=== PATIENT | male | born 1955 | race Caucasian/White ===

== ENCOUNTER 2016-11-28 00:02 | Emergency (ER) | payer SELFPAY ==
--- NOTE | 2016-11-29 04:09 | ER ---
ADMIT: 11/28/2016 RM/LOC: ER [facility] MR#: [id number] [place], [place] [id number] AFSANEH HERNANDEZ [address] [place] [address] [facility] Emergency Room Report SEX: M AGE: 61 : 1955 DATE: 11/28/2016 TIME: 0002 Please refer to my T-sheet for complete H and P. HISTORY OF PRESENT ILLNESS: Briefly, the patient is a 61-year-old who comes in with right leg swelling and tender. It has been there for 2-3 days. It hurts when he walks. He said he had some chills, but no fever recently. PHYSICAL EXAMINATION: VITAL SIGNS: Stable. HEENT: Grossly normal. LUNGS: Clear. HEART: Regular. ABDOMEN: Soft. EXTREMITIES: His right leg and I did outline, it is warm, has a cellulitis. EMERGENCY DEPARTMENT COURSE: I gave him Rocephin 1 g IM, Bactrim DS 1 p.o. and Keflex 500 p.o. I had a long discussion with him about smoking cessation and need to follow up. He was ready for discharge. ASSESSMENT: 1. Right leg cellulitis. 2. Nicotine abuse. PLAN: Stop smoking. Keflex 500 q.i.d. x10 days, Bactrim DS b.i.d. x10 days. See Dr. Robles in 1 or 2 days. Recheck, return if worse. Ricardo Corbett MD/ brooke JOB #: [id number] CC: Ricardo Corbett MD, Attending Physician
== END 2016-11-28 01:12 | disposition home or self-care (01) ==
LOC: ER 00:02
DX: L03.115 Cellulitis of right lower limb (principal); F17.210 Nicotine dependence, cigarettes, uncomplicated; J44.9 Chronic obstructive pulmonary disease, unspecified